=== PATIENT | male | born 1990 | race American Indian/Alaskan Native ===

== ENCOUNTER 2018-10-25 20:07 | Emergency (ER) | payer MEDICAID ==
[~2018-10-25] VITALS: Ht 175.3 cm; Wt 65.8 kg
[~2018-10-25 20:07] MED LIST: NO HOME MEDS
[2018-10-25 20:11] VITALS: BP 161/102
== END 2018-10-25 21:30 | disposition left against medical advice (07) ==
LOC: ER 20:08
DX: R07.89 Other chest pain (principal); R11.2 Nausea with vomiting, unspecified; R51 Headache; R06.02 Shortness of breath; L98.9 Disorder of the skin and subcutaneous tissue, unspecified; F12.90 Cannabis use, unspecified, uncomplicated; F15.90 Other stimulant use, unspecified, uncomplicated; F11.90 Opioid use, unspecified, uncomplicated
CPT/HCPCS: 71045; 93005; 99283

== ENCOUNTER 2019-05-08 12:08 | Emergency (ER) | payer MEDICAID ==
[~2019-05-08] VITALS: Ht 175.3 cm; Wt 72.7 kg
[2019-05-08 12:14] VITALS: BP 134/90
[2019-05-08] MEDS ORDERED: PRED20TA PO (13:57)
[2019-05-08] MEDS ORDERED: ONDA8TAB13 PO (13:57)
--- NOTE | 2019-05-08 14:06 | NUR ---
pt seen and dc'd by provider
== END 2019-05-08 14:07 | disposition home or self-care (01) ==
LOC: ER 12:09
DX: R21 Rash and other nonspecific skin eruption (principal); R11.2 Nausea with vomiting, unspecified; F15.90 Other stimulant use, unspecified, uncomplicated; F31.9 Bipolar disorder, unspecified; F20.9 Schizophrenia, unspecified; F12.90 Cannabis use, unspecified, uncomplicated; F11.90 Opioid use, unspecified, uncomplicated; Z79.899 Other long term (current) drug therapy
CPT/HCPCS: 99283

== ENCOUNTER 2019-07-15 07:50 | Emergency (ER) | payer MEDICAID ==
[~2019-07-15] VITALS: Ht 177.8 cm; Wt 65.4 kg
[~2019-07-15 07:50] MED LIST changes: +ONDA8TAB13 PO
[2019-07-15 07:58] VITALS: BP 136/79
[2019-07-15] MEDS ORDERED: CEPH250T PO (09:21)
[2019-07-15] MEDS ORDERED: PROCHC RC (09:21)
== END 2019-07-15 09:42 | disposition home or self-care (01) ==
LOC: ER 07:50
DX: K64.4 Residual hemorrhoidal skin tags (principal); K08.89 Other specified disorders of teeth and supporting structures; F31.9 Bipolar disorder, unspecified; F20.9 Schizophrenia, unspecified; F17.200 Nicotine dependence, unspecified, uncomplicated; F12.90 Cannabis use, unspecified, uncomplicated; F15.90 Other stimulant use, unspecified, uncomplicated; F11.90 Opioid use, unspecified, uncomplicated; Z79.2 Long term (current) use of antibiotics; Z79.899 Other long term (current) drug therapy
CPT/HCPCS: 99283

== ENCOUNTER 2019-07-21 17:44 | Emergency (ER) | payer MEDICAID ==
[~2019-07-21] VITALS: Ht 175.3 cm; Wt 64.5 kg
[~2019-07-21 17:44] MED LIST changes: +CEPH250T PO; +PROCHC RC
[2019-07-21 17:56] VITALS: BP 126/73
[2019-07-21] MEDS ORDERED: ondansetron 4mg rapidly disintigrating tab PO ONE (18:15)
[2019-07-21] MEDS ORDERED: proCHLORperazine 10 MG/2 ml inj IM ONE (18:15)
[2019-07-21] MEDS ORDERED: ONDA4TAB6 PO (18:17)
--- NOTE | 2019-07-21 18:33 | NUR ---
Pt complains of nausea when he eats for last couple of days. Additionally has had body aches.
== END 2019-07-21 18:43 | disposition home or self-care (01) ==
LOC: ER 17:44
DX: K52.9 Noninfective gastroenteritis and colitis, unspecified (principal); F31.9 Bipolar disorder, unspecified; F20.9 Schizophrenia, unspecified; F17.200 Nicotine dependence, unspecified, uncomplicated; F12.90 Cannabis use, unspecified, uncomplicated; F15.90 Other stimulant use, unspecified, uncomplicated; F11.90 Opioid use, unspecified, uncomplicated; Z79.2 Long term (current) use of antibiotics; Z79.899 Other long term (current) drug therapy
CPT/HCPCS: 96372; 99283; J0780

== ENCOUNTER 2023-10-10 18:43 | Emergency (ER) | payer MEDICAID, OTHER ==
[~2023-10-10] VITALS: Ht 175.3 cm; Wt 72.7 kg
[~2023-10-10 18:43] MED LIST changes: -CEPH250T PO; +ONDA4TAB6 PO
[2023-10-10] MEDS ORDERED: SULF1TAB48 PO (20:03)
[2023-10-10 20:23] VITALS: BP 129/72; PULSE 88; RESP 16; TEMP 98; O2SAT 100
== END 2023-10-10 20:24 | disposition home or self-care (01) ==
LOC: ER 18:43
DX: L03.115 Cellulitis of right lower limb (principal); F31.9 Bipolar disorder, unspecified; F12.90 Cannabis use, unspecified, uncomplicated; F15.90 Other stimulant use, unspecified, uncomplicated; Z79.899 Other long term (current) drug therapy
CPT/HCPCS: 99283

== ENCOUNTER 2023-12-05 07:20 | Emergency (ER) | payer MEDICAID ==
[~2023-12-05] VITALS: Ht 177.8 cm; Wt 71.2 kg
[~2023-12-05 07:20] MED LIST changes: +LEVO-65 PO; +ONDA-245 PO; -ONDA8TAB13 PO
[2023-12-05 08:21] LABS: BASOPHILS % (AUTO) 0.3 % (0-1); EOSINOPHILS % (AUTO) 0.1 % (0-6); HEMATOCRIT 32.8 % (42.0-52.0); HEMOGLOBIN 10.5 g/dl (14.0-17.9); LYMPHOCYTES # (AUTO) 1.6 X10'3 (1.1-4.8); LYMPHOCYTES % (AUTO) 16.6 % (21-51); MEAN CORPUSCULAR HEMOGLOBIN 25.7 PG (27.0-31.0); MEAN CORPUSCULAR HGB CONC 32.1 g/dL (33.0-36.5); MEAN CORPUSCULAR VOLUME 80.1 FL (78-98); MEAN PLATELET VOLUME 7.7 FL (7.4-10.4); MONOCYTES # (AUTO) 0.8 X10'3 (0-0.9); MONOCYTES % (AUTO) 8.3 % (2-12); NEUTROPHILS # (AUTO) 7.1 X10'3 (1.8-7.7); NEUTROPHILS % (AUTO) 74.7 % (42-75); PLATELET COUNT 308 X10'3 (140-440); RED CELL DISTRIBUTION WIDTH 13.1 % (11.5-14.5); WHITE BLOOD COUNT 9.4 X10'3 (4.5-11.0)
[2023-12-05 08:28] LABS: ALBUMIN 3.3 G/DL (3.4-5.0); ANION GAP 8 (8-16); BLOOD UREA NITROGEN 14 MG/DL (7-18); BUN/CREATININE RATIO 16.7 (10.0-20.0); CALCIUM 8.9 MG/DL (8.5-10.1); CHLORIDE 99 MMOL/L (99-107); CREATININE 0.84 MG/DL (0.60-1.10); GLUCOSE 105 MG/DL (70-104); POTASSIUM 3.7 MMOL/L (3.5-5.1); SODIUM 138 MMOL/L (135-145); TOTAL CARBON DIOXIDE 31.4 MMOL/L (24-32); eCRCL 128 ML/MIN; eGFR > 90 ML/MIN
[2023-12-05] MEDS: sulfamethoxazole/trimethoprim DS (800/160mg) tablet PO ONE (10:12)
[2023-12-05] MEDS ORDERED: SULF1TAB49 PO (10:41)
[2023-12-05 10:48] VITALS: BP 107/61; PULSE 71; RESP 15; TEMP 98.6; O2SAT 99
== END 2023-12-05 10:55 | disposition home or self-care (01) ==
LOC: ER 07:21
DX: L03.115 Cellulitis of right lower limb (principal); F31.9 Bipolar disorder, unspecified; F15.90 Other stimulant use, unspecified, uncomplicated; F12.90 Cannabis use, unspecified, uncomplicated; Z79.899 Other long term (current) drug therapy; Z79.2 Long term (current) use of antibiotics
CPT/HCPCS: 36415; 80048; 85025; 99284